=== PATIENT | female | born 1955 | race Caucasian/White ===

== ENCOUNTER → 2018-09-14 | Outpatient (CLI) | payer OTHER ==
--- NOTE | 2018-09-15 08:24 | CARD ---
MR#: [id number] Date of Study: 09/14/2018 Ordering Physician: EV NAVARRO, Referring Physician: EV NAVARRO, Tech: María Avila APPROVED REPORT EXAM: Two-dimensional and M-mode echocardiogram with Doppler and color Doppler. Other Information Quality : AverageHR: 66bpm Rhythm : NSRTechnically limited study due to body habitus. INDICATION Edema RISK FACTORS Hypertension Hyperlipidemia 2D DIMENSIONS RVDd3.0 (2.9-3.5cm)Left Atrium(2D)3.7 (1.6-4.0cm) IVSd0.9 (0.7-1.1cm)Aortic Root(2D)3.0 (2.0-3.7cm) LVDd5.3 (3.9-5.9cm)LVOT Diameter2.0 (1.8-2.4cm) PWd0.9 (0.7-1.1cm)LVDs3.2 (2.5-4.0cm) FS (%) 38.9 %SV91.2 ml LVEF(%)68.8 (>50%) Aortic Valve AoV Peak [place].139.6cm/sAoV VTI33.0cm AO Peak GR.7.8mmHgLVOT Peak [place].93.0cm/s LVOT VTI 21.62cmAO Mean GR.4mmHg TONYA (VMAX)2.28vn5EZO (VTI)2.11cm2 Mitral Valve MV E Tpphtkku57.3cm/sMV DECEL [id number] MV A Wgswdzbu03.1cm/sE/A Ratio0.8 Pulmonary Valve PV Peak Ozfqkxpy69.1cm/sPV Peak Grad.3mmHg Tricuspid Valve TR P. Olgpwtkt675hq/sRAP DEAYENIC9weOb TR Peak Gr.11zlXzCODL94vuYt Pulmonary Vein S1 Apobizcx50.4cm/sD2 Gndqyxyg68.2cm/s LEFT VENTRICLE The left ventricle is normal size. There is normal left ventricular wall thickness. The left ventricu lar systolic function is normal and the ejection fraction is within normal range. The Ejection Fracti on is >55%. There is normal LV segmental wall motion. Transmitral Doppler flow pattern is Grade I-abn ormal relaxation pattern. RIGHT VENTRICLE The right ventricle is normal size. There is normal right ventricular wall thickness. The right ventr icular systolic function is normal. ATRIA The left atrium size is normal. The right atrium size is normal. The interatrial septum is intact wit h no evidence for an atrial septal defect or patent foramen ovale as noted on 2-D or Doppler imaging. AORTIC VALVE The aortic valve is grossly normal in structure and function. Doppler and Color Flow revealed trace a ortic regurgitation. There is no significant aortic valvular stenosis. MITRAL VALVE The mitral valve is normal in structure and function. There is no evidence of mitral valve prolapse. There is no mitral valve stenosis. Doppler and Color Flow revealed no mitral valve regurgitation note d. TRICUSPID VALVE The tricuspid valve is normal in structure and function. Doppler and Color Flow revealed trace tricus pid regurgitation with an estimated PAP of 35 mmHg. There is no tricuspid valve stenosis. PULMONIC VALVE The pulmonic valve is not well visualized. Doppler and Color Flow revealed no pulmonic valvular regur gitation. GREAT VESSELS The aortic root is normal in size. The IVC is normal in size and collapses >50% with inspiration. PERICARDIAL EFFUSION There is no evidence of significant pericardial effusion. Critical Notification Critical Value: No <Conclusion> The left ventricular systolic function is normal and the ejection fraction is within normal range. Th e Ejection Fraction is >55%. There is normal LV segmental wall motion. Technically difficult study. Signed by : Shaheen Dye, Electronically Approved : 09/15/2018 08:24:04
== END | disposition home or self-care (01) ==
LOC: ECHO 13:51
PROVIDERS: ATTEND Family Medicine
DX: I10 Essential (primary) hypertension (principal); E78.5 Hyperlipidemia, unspecified; R00.8 Other abnormalities of heart beat; R60.9 Edema, unspecified
CPT/HCPCS: 93306